=== PATIENT | female | born 1995 | race Caucasian/White ===

== ENCOUNTER 2018-12-11 13:38 | Emergency (ER) | payer OTHER ==
[~2018-12-11] VITALS: Ht 167.6 cm; Wt 101.2 kg
[2018-12-11 13:45] VITALS: Ht 167.6 cm; Wt 101.2 kg
[2018-12-11 15:53] VITALS: BP 137/80
== END 2018-12-11 15:54 | disposition home or self-care (01) ==
LOC: ED 13:38
DX: K04.7 Periapical abscess without sinus (principal)
CPT/HCPCS: J0561; J3490